=== PATIENT | male | born 1965 | race American Indian/Alaskan Native ===

== ENCOUNTER 2017-09-26 07:58 | Inpatient (IN) | payer BC ==
[2017-09-26 08:27] LABS: Basophils # (Auto) 0.1 K/mm3 (0.0-0.1); Basophils % (Auto) 0.6 % (0.0-1.8); Eosinophils # (Auto) 0.4 K/mm3 (0.0-0.4); Hematocrit 32.9 % (35.5-45.6); Hemoglobin 10.4 gm/dl (11.8-15.2); Lymphocytes # (Auto) 1.2 K/mm3 (1.2-5.4); Lymphocytes % (Auto) 9.1 % (13.4-35.0); Mean Corpuscular HGB Conc 32 % (32-34); Mean Corpuscular Hemoglobin 29 pg (28-32); Mean Corpuscular Volume 92 fl (84-94); Monocytes # (Auto) 0.8 K/mm3 (0.0-0.8); Monocytes % (Auto) 5.7 % (0.0-7.3); Platelet Count 276 K/mm3 (140-440); Red Blood Count 3.56 M/mm3 (3.65-5.03); Red Cell Distribution Width 14.9 % (13.2-15.2)
[2017-09-26 08:45] LABS: Calcium 8.4 mg/dL (8.4-10.2)
--- NOTE | 2017-09-26 09:06 | Emergency Department Report ---
HPI - General Chief Complaint: High BP Time Seen by Provider: 09/26/17 09:00 - HPI HPI: This is a 52 year-old male presents to the emergency department from his dialysis clinic with complaint of shortness of breath and needing dialysis. The patient missed his last 2 dialysis sessions and went to get dialysis today but was denied secondary to elevated blood pressure. His risk advisor is Dr. Escobar. He has a past medical history of asthma, GERD, hypertension and is end-stage renal disease on dialysis on Monday/Monday/ Monday. He last had dialysis last Monday. He denies any chest pain, fever, nausea or vomiting. He has not taken anything for her symptoms prior to presentation. ED Past Medical Hx - Past Medical History Previous Medical History?: Yes Hx Hypertension: Yes Hx GERD: Yes Hx Renal Disease: Yes (diaylsis m,w,f) Hx Arthritis: Yes (HANDS,KNEES) Hx Asthma: Yes (allergy related) - Surgical History Past Surgical History?: Yes Additional Surgical History: vas cath. diaylsis graft left left arm - Social History Smoking Status: Never Smoker Substance Use Type: Alcohol, Prescribed - Medications Home Medications: Home Medications Medication Instructions Recorded Confirmed Last Taken Type Furosemide [Lasix TAB] 80 mg PO BID 01/04/16 09/26/17 04/18/16 History Labetalol HCl 300 mg PO TID 01/04/16 09/26/17 04/19/16 07:30 History amLODIPine [Norvasc] 5 mg PO DAILY 01/04/16 09/26/17 04/18/16 History hydrALAZINE [Apresoline TAB] 100 mg PO TID 01/04/16 09/26/17 04/18/16 History Allopurinol [Zyloprim] 100 mg PO BID 01/12/16 09/26/17 04/18/16 History B Complex 11/Folic/C/Biot/Zinc 1 each PO QDAY 09/26/17 09/26/17 Unknown History [Dialyvite with Zinc Tablet] Ferric Citrate (Nf) [Auryxia (Nf)] 2 tab PO TID 09/26/17 09/26/17 Unknown History Sodium Bicarbonate 650 mg PO BIDWM 09/26/17 09/26/17 Unknown History cloNIDine [Catapres] 0.2 mg PO TID 09/26/17 09/26/17 Unknown History ED Review of Systems ROS: Stated complaint: HYPERTENSION Other details as noted in HPI Comment: All other systems reviewed and negative Constitutional: denies: chills, fever Eyes: denies: eye pain, eye discharge, vision change ENT: denies: ear pain, throat pain Respiratory: shortness of breath. denies: cough Cardiovascular: denies: chest pain, palpitations Gastrointestinal: denies: abdominal pain, nausea, diarrhea Genitourinary: denies: urgency, dysuria Musculoskeletal: denies: back pain, joint swelling, arthralgia Skin: denies: rash, lesions Neurological: denies: headache, weakness, paresthesias Physical Exam - Physical Exam Vital Signs: Vital Signs 09/26/17 08:06 Temperature 97.8 F Pulse Rate 79 Respiratory 16 Rate Blood Pressure 196/87 O2 Sat by Pulse 16 L Oximetry Physical Exam: GENERAL: The patient is well-developed well-nourished. HENT: Normocephalic. Atraumatic. Patient has moist mucous membranes. EYES: Extraocular motions are intact. Pupils equal reactive to light bilaterally. NECK: Supple. Trachea is midline. CHEST/LUNGS: Coarse breath sounds without chest. No tachypnea or accessory muscle use. There is no respiratory distress noted. HEART/CARDIOVASCULAR: Regular. There is no tachycardia. There is no murmur. ABDOMEN: Abdomen is soft, nontender. Patient has normal bowel sounds. Obese habitus. SKIN: Skin is warm and dry. Mild pitting swelling of the bilateral lower extremity is. NEURO: The patient is awake, alert, and oriented. The patient is cooperative. The patient has no focal neurologic deficits. The patient has normal speech. MUSCULOSKELETAL: There is no tenderness or deformity. There is no limitation range of motion. There is no evidence of acute injury. ED Course Vital Signs 09/26/17 08:06 Temperature 97.8 F Pulse Rate 79 Respiratory 16 Rate Blood Pressure 196/87 O2 Sat by Pulse 16 L Oximetry - Consultations Consultation #1: I spoke to the patient's risk advisor, Dr. Olson, who will arrange stat dialysis this morning. The patient will be admitted to the hospitalist service. Since the patient will get dialysis this morning, he did not require any of the hyperkalemia cocktail. 09/26/17 10:06 ED Medical Decision Making - Lab Data Result diagrams: 09/26/17 08:13 09/26/17 08:13 - Radiology Data Radiology results: image reviewed interpreted by me: Chest x-ray shows some mild cardiomegaly. There is pulmonary vascular congestion and some mild basilar effusions. - Medical Decision Making Patient presents with very elevated blood pressure and some shortness of breath after missing his last 2 dialysis sessions. He has a potassium of 6.6. His risk advisor has been counseled that and will arrange for stat dialysis. He did not want the hyperkalemia cocktail to be given on this patient. He was given something for his elevated blood pressure. Chest x-ray shows some volume overload. Patient does not appear in any respiratory distress. Accepted for admission by the hospitalist service. - Differential Diagnosis CHF, hypervolemia, hyperkalemia, pneumonia Critical Care Time: No Critical care attestation.: If time is entered above; I have spent that time in minutes in the direct care of this critically ill patient, excluding procedure time. ED Disposition Clinical Impression: ESRD (end stage renal disease), Hypertensive urgency, Hyperkalemia, SOB ( shortness of breath) Disposition: DC-09 OP ADMIT IP TO THIS HOSP Is pt being admited?: Yes Condition: Stable Time of Disposition: 09:52
--- NOTE | 2017-09-26 09:42 | XRay Report ---
PORTABLE CHEST INDICATION: Shortness of breath. COMPARISON: None similar. FINDINGS: Portable, frontal chest radiograph suggests slightly prominent bronchovascular markings centrally and minimal fluid or thickening along the right minor fissure. No significant pleural effusions. Normal cardiomediastinal silhouette. EKG leads. Intact bones. CONCLUSION: Subtle central pulmonary vascular congestion not excluded developing in an appropriate clinical setting, as described. Please correlate. Thank you for the opportunity to participate in this patient's care.
[2017-09-26] MEDS ORDERED: NACL 0.9% 100 ML IV PRN (09:45)
[2017-09-26] MEDS ORDERED: APRESOLINE ONE (10:01)
--- NOTE | 2017-09-26 11:06 | History and Physical Report ---
<ROSA SHEPPARD - Last Filed: 09/26/17 11:44> History of Present Illness Date of examination: 09/26/17 Date of admission: 09/26/17 09:52 Chief complaint: Shortness of breath History of present illness: Patient is a 52 years old male with past medical history of hypertension, Asthma, end stage renal disease MWF and medical non-compliance presented to ED for with the complaint of the need for dialysis and dyspnea on exertion.He has been end-stage renal disease on dialysis for the past few years. Patient states that unable to receive hemodialysis because he was out of tow. Patient followed by Dr. Olson. The patient was last dialyzed on 2016 and missed two cession of HD treatment so he presents to ER for hemodialysis treatment today. Patient also complains dyspnea on exertion. He denies fevers, chills, chest pain, nausea, vomiting, abdominal pain, orthopnea, PND or leg swelling. Past History Past Medical History: ESRD (MWF), hypertension Past Surgical History: Other ( diaylsis graft left left arm) Social history: denies: smoking, alcohol abuse Family history: hypertension Medications and Allergies Allergies Allergy/AdvReac Type Severity Reaction Status Date / Time lisinopril Allergy Intermediate Swelling Verified 01/12/16 07:41 OF THE MOUTH Home Medications Medication Instructions Recorded Confirmed Last Taken Type Furosemide [Lasix TAB] 80 mg PO BID 01/04/16 09/26/17 04/18/16 History Labetalol HCl 300 mg PO TID 01/04/16 09/26/17 04/19/16 07:30 History amLODIPine [Norvasc] 5 mg PO DAILY 01/04/16 09/26/17 04/18/16 History hydrALAZINE [Apresoline TAB] 100 mg PO TID 01/04/16 09/26/17 04/18/16 History Allopurinol [Zyloprim] 100 mg PO BID 01/12/16 09/26/17 04/18/16 History B Complex 11/Folic/C/Biot/Zinc 1 each PO QDAY 09/26/17 09/26/17 Unknown History [Dialyvite with Zinc Tablet] Ferric Citrate (Nf) [Auryxia (Nf)] 2 tab PO TID 09/26/17 09/26/17 Unknown History Sodium Bicarbonate 650 mg PO BIDWM 09/26/17 09/26/17 Unknown History cloNIDine [Catapres] 0.2 mg PO TID 09/26/17 09/26/17 Unknown History Active Meds: Active Medications Heparin Sodium (Porcine) (Heparin) 5,000 unit SUB-Q Q8HR [facility] Sodium Chloride (Nacl 0.9%) 100 mls @ 999 mls/hr IV AY[facility]NA PRN PRN Reason: Hypotension Review of Systems Constitutional: no weight loss, no weight gain, no fever, no chills Ears, nose, mouth and throat: no ear pain, no ear discharge Cardiovascular: shortness of breath, dyspnea on exertion, paroxysmal nocturnal dyspnea, no chest pain, no syncope, no lightheadedness Respiratory: cough, shortness of breath, dyspnea on exertion, no hemoptysis Gastrointestinal: no abdominal pain, no nausea, no vomiting, no diarrhea Rectal: no incontinence, no bleeding Musculoskeletal: no neck pain, no arm numbness/tingling, no low back pain Integumentary: no rash, no pruritis, no redness Neurological: no weakness, no numbness, no tingling Psychiatric: no memory loss, no change in sleep habits, no sleep disturbances, no insomnia Endocrine: no cold intolerance, no heat intolerance, no polyphagia, no excessive thirst Hematologic/Lymphatic: no easy bruising Allergic/Immunologic: no urticaria, no allergic rhinitis Exam - Constitutional Vitals: Temp Pulse Resp BP Pulse Ox 97.8 F 80 18 199/109 98 09/26/17 08:06 09/26/17 10:30 09/26/17 10:30 09/26/17 10:30 09/26/17 10:30 General appearance: Present: no acute distress - EENT Eyes: Present: PERRL ENT: hearing intact - Neck Neck: Present: supple, normal ROM - Respiratory Respiratory effort: normal Respiratory: bilateral: diminished - Cardiovascular Rhythm: regular Heart Sounds: Present: S1 & S2 - Abdominal General gastrointestinal: Present: soft, non-tender Male genitourinary: Present: deferred - Rectal Rectal Exam: deferred - Integumentary Integumentary: Present: clear, warm, dry - Musculoskeletal Musculoskeletal: strength equal bilaterally - Psychiatric Psychiatric: appropriate mood/affect - Neurologic Neurologic: CNII-XII intact - Allied Health Allied health notes reviewed: nursing Results - Labs CBC & Chem 7: 09/26/17 08:13 09/26/17 08:13 Labs: Laboratory Last Values WBC 13.3 K/mm3 (4.5-11.0) H 09/26/17 08:13 RBC 3.56 M/mm3 (3.65-5.03) L 09/26/17 08:13 Hgb 10.4 gm/dl (11.8-15.2) L 09/26/17 08:13 Hct 32.9 % (35.5-45.6) L 09/26/17 08:13 MCV 92 fl (84-94) 09/26/17 08:13 MCH 29 pg (28-32) 09/26/17 08:13 MCHC 32 % (32-34) 09/26/17 08:13 RDW 14.9 % (13.2-15.2) 09/26/17 08:13 Plt Count 276 K/mm3 (140-440) 09/26/17 08:13 Lymph % (Auto) 9.1 % (13.4-35.0) L 09/26/17 08:13 [place] % (Auto) 5.7 % (0.0-7.3) 09/26/17 08:13 Eos % (Auto) 3.0 % (0.0-4.3) 09/26/17 08:13 Baso % (Auto) 0.6 % (0.0-1.8) 09/26/17 08:13 Lymph # 1.2 K/mm3 (1.2-5.4) 09/26/17 08:13 [place] # 0.8 K/mm3 (0.0-0.8) 09/26/17 08:13 Eos # 0.4 K/mm3 (0.0-0.4) 09/26/17 08:13 Baso # 0.1 K/mm3 (0.0-0.1) 09/26/17 08:13 Seg Neutrophils % 81.6 % (40.0-70.0) H 09/26/17 08:13 Seg Neutrophils # 10.8 K/mm3 (1.8-7.7) H 09/26/17 08:13 Sodium 141 mmol/L (137-145) 09/26/17 08:13 Potassium 6.6 mmol/L (3.6-5.0) H* 09/26/17 08:13 Chloride 99.9 mmol/L (98-107) 09/26/17 08:13 Carbon Dioxide 18 mmol/L (22-30) L 09/26/17 08:13 Anion Gap 30 mmol/L 09/26/17 08:13 BUN 87 mg/dL (9-20) H 09/26/17 08:13 Creatinine 17.7 mg/dL (0.8-1.5) H 09/26/17 08:13 Estimated GFR 3 ml/min 09/26/17 08:13 BUN/Creatinine Ratio 5 % 09/26/17 08:13 Glucose 90 mg/dL (75-100) 09/26/17 08:13 Calcium 8.4 mg/dL (8.4-10.2) 09/26/17 08:13 Assessment and Plan Assessment and plan: Patient is a 52 years old male with past medical history of hypertension, Asthma, end stage renal disease MWF and medical non-compliance presented to ED for with the complaint of the need for dialysis and dyspnea on exertion.He has been end-stage renal disease on dialysis for the past few years. End Stage Renal Disease Nephrology following Volume Overload Patient will have emergent hemodialysis Hyperkalmia Patient will have emergent HD today that will correct it. Closely monitor electrolytes Hypertensive urgency Optimized home antihypertensive medications IV Hydralazine for SBP>160 Closely monitor blood pressure Chronic anemia H&H stable for patient at this point; no blood transfusions needed Closely monitor H&H Mild hyponatremia Most likely fluid dilution Closely monitor electrolytes Leukocytosis Reactive no source of infection Closely monitor CBC Noncompliance Patient noncompliance with dialysis. counseling done DVT prophylaxis Heparin Advance Directives: Yes VTE prophylaxis?: Chemical Contraindication Mechanical VTE Prophylaxis: Treatment Not Indicated Plan of care discussed with patient/family: Yes <NATASHA ANTONIO - Last Filed: 09/26/17 21:05> History of Present Illness Date of admission: 09/26/17 09:52 Medications and Allergies Active Meds: Active Medications Allopurinol (Zyloprim) 100 mg PO QDAY [facility] Amlodipine Besylate (Norvasc) 5 mg PO DAILY [facility] Clonidine HCl (Catapres) 0.2 mg PO TID [facility] Last Admin: 09/26/17 20:56 Dose: 0.2 mg Heparin Sodium (Porcine) (Heparin) 5,000 unit SUB-Q Q8HR [facility] Last Admin: 09/26/17 14:24 Dose: Not Given Hydralazine HCl (Apresoline) 10 mg IV Q4H PRN PRN Reason: Blood Pressure Hydralazine HCl (Apresoline) 100 mg PO TID [facility] Last Admin: 09/26/17 20:56 Dose: 100 mg Sodium Chloride (Nacl 0.9%) 100 mls @ 999 mls/hr IV AYANNA PRN PRN Reason: Hypotension Labetalol HCl (Normodyne) 300 mg PO TID [facility] Last Admin: 09/26/17 20:54 Dose: 300 mg Miscellaneous Medication (Ferric Citrate) 2 tab PO TID [facility] Multivit/Ca Carb/B Cmplx/FA/Prenat (Renal Caps) 1 cap PO QDAY [facility] Last Admin: 09/26/17 13:52 Dose: Not Given Sodium Bicarbonate (Sodium Bicarbonate) 650 mg PO BIDDIAB [facility] Last Admin: 09/26/17 18:23 Dose: 650 mg Exam - Constitutional Vitals: Temp Pulse Resp BP Pulse Ox 98.7 F 73 18 174/109 94 09/26/17 20:35 09/26/17 20:56 09/26/17 20:35 09/26/17 20:56 09/26/17 20:35 Results - Labs CBC & Chem 7: 09/26/17 08:13 09/26/17 08:13 Labs: Laboratory Last Values WBC 13.3 K/mm3 (4.5-11.0) H 09/26/17 08:13 RBC 3.56 M/mm3 (3.65-5.03) L 09/26/17 08:13 Hgb 10.4 gm/dl (11.8-15.2) L 09/26/17 08:13 Hct 32.9 % (35.5-45.6) L 09/26/17 08:13 MCV 92 fl (84-94) 09/26/17 08:13 MCH 29 pg (28-32) 09/26/17 08:13 MCHC 32 % (32-34) 09/26/17 08:13 RDW 14.9 % (13.2-15.2) 09/26/17 08:13 Plt Count 276 K/mm3 (140-440) 09/26/17 08:13 Lymph % (Auto) 9.1 % (13.4-35.0) L 09/26/17 08:13 [place] % (Auto) 5.7 % (0.0-7.3) 09/26/17 08:13 Eos % (Auto) 3.0 % (0.0-4.3) 09/26/17 08:13 Baso % (Auto) 0.6 % (0.0-1.8) 09/26/17 08:13 Lymph # 1.2 K/mm3 (1.2-5.4) 09/26/17 08:13 [place] # 0.8 K/mm3 (0.0-0.8) 09/26/17 08:13 Eos # 0.4 K/mm3 (0.0-0.4) 09/26/17 08:13 Baso # 0.1 K/mm3 (0.0-0.1) 09/26/17 08:13 Seg Neutrophils % 81.6 % (40.0-70.0) H 09/26/17 08:13 Seg Neutrophils # 10.8 K/mm3 (1.8-7.7) H 09/26/17 08:13 Sodium 141 mmol/L (137-145) 09/26/17 08:13 Potassium 6.6 mmol/L (3.6-5.0) H* 09/26/17 08:13 Chloride 99.9 mmol/L (98-107) 09/26/17 08:13 Carbon Dioxide 18 mmol/L (22-30) L 09/26/17 08:13 Anion Gap 30 mmol/L 09/26/17 08:13 BUN 87 mg/dL (9-20) H 09/26/17 08:13 Creatinine 17.7 mg/dL (0.8-1.5) H 09/26/17 08:13 Estimated GFR 3 ml/min 09/26/17 08:13 BUN/Creatinine Ratio 5 % 09/26/17 08:13 Glucose 90 mg/dL (75-100) 09/26/17 08:13 Calcium 8.4 mg/dL (8.4-10.2) 09/26/17 08:13 Assessment and Plan Assessment and plan: I saw and evaluated the patient. I agree with the findings and the plan of care as documented in the Nurse Practitioner's~note, with the following corrections and additions. ESRD with BUN of 87 and Creatinine of 17.7 due to missed dialysis from noncompliance. For hypokalemia, EKG done in ER. No arrhythmias identified.
[2017-09-26] MEDS ORDERED: APRESOLINE IV PRN (11:19)
--- NOTE | 2017-09-26 11:26 | Consultation ---
History of Present Illness - Reason for Consult Consult date: 09/26/17 end stage renal disease, hyperkalemia Requesting physician: CON LIMON - History of Present Illness Patient is a 52 years old male with past medical history of hypertension, Asthma, end stage renal disease MWF and medical non-compliance presented to ED for with the complaint of the need for dialysis and dyspnea on exertion.He has been end-stage renal disease on dialysis for the past few years. Patient states that unable to receive hemodialysis because he was out of town . The patient was last dialyzed on 09/20/2017 and missed two session of HD treatment so he presents to ER for hemodialysis treatment today. Patient also complains dyspnea on exertion. He denies fevers, chills, chest pain, nausea, vomiting, abdominal pain, orthopnea, PND or leg swelling. He undergoes hemodialysis at [facility] Mondays, Wednesdays and Fridays. He went to the dialysis clinic today, however his blood pressure was 240/140 and he was visibly dyspneic. He was therefore sent to the emergency room for evaluation Past History Past Medical History: ESRD (MWF), hypertension Past Surgical History: Other (history of creation of AV fistula) Social history: other (denies smoking or drinking) Family history: no significant family history (noncontributory for kidney disease) Medications and Allergies Allergies Allergy/AdvReac Type Severity Reaction Status Date / Time lisinopril Allergy Intermediate Swelling Verified 01/12/16 07:41 OF THE MOUTH Home Medications Medication Instructions Recorded Confirmed Last Taken Type Furosemide [Lasix TAB] 80 mg PO BID 01/04/16 09/26/17 04/18/16 History Labetalol HCl 300 mg PO TID 01/04/16 09/26/17 04/19/16 07:30 History amLODIPine [Norvasc] 5 mg PO DAILY 01/04/16 09/26/17 04/18/16 History hydrALAZINE [Apresoline TAB] 100 mg PO TID 01/04/16 09/26/17 04/18/16 History Allopurinol [Zyloprim] 100 mg PO BID 01/12/16 09/26/17 04/18/16 History B Complex 11/Folic/C/Biot/Zinc 1 each PO QDAY 09/26/17 09/26/17 Unknown History [Dialyvite with Zinc Tablet] Ferric Citrate (Nf) [Auryxia (Nf)] 2 tab PO TID 09/26/17 09/26/17 Unknown History Sodium Bicarbonate 650 mg PO BIDWM 09/26/17 09/26/17 Unknown History cloNIDine [Catapres] 0.2 mg PO TID 09/26/17 09/26/17 Unknown History Active Meds: Active Medications Allopurinol (Zyloprim) 100 mg PO BID [facility] Amlodipine Besylate (Norvasc) 5 mg PO DAILY [facility] Clonidine HCl (Catapres) 0.2 mg PO TID [facility] Heparin Sodium (Porcine) (Heparin) 5,000 unit SUB-Q Q8HR [facility] Hydralazine HCl (Apresoline) 10 mg IV Q4H PRN PRN Reason: Blood Pressure Hydralazine HCl (Apresoline) 100 mg PO TID [facility] Sodium Chloride (Nacl 0.9%) 100 mls @ 999 mls/hr IV AYANNA PRN PRN Reason: Hypotension Miscellaneous Medication (B Complex 11/Folic/C/Biot/Zinc [Dialyvite With Zinc Tablet]) 1 each PO QDAY [facility] Miscellaneous Medication (Ferric Citrate) 2 tab PO TID [facility] Miscellaneous Medication (Labetalol Hcl [Labetalol Hcl]) 300 mg PO TID [facility] Sodium Bicarbonate (Sodium Bicarbonate) 650 mg PO BIDWM [facility] Review of Systems All systems: negative (negative except as noted above) Exam - Vital Signs Vital signs: Vital Signs Temp Pulse Resp BP Pulse Ox 97.8 F 79 16 196/87 16 L 09/26/17 08:06 09/26/17 08:06 09/26/17 08:06 09/26/17 08:06 09/26/17 08:06 - General Appearance General appearance: well-developed, well-nourished, appears stated age EENT: PERRL, mucous membranes moist Neck: Present: neck supple, trachea midline. Absent: JVD/HJR, Masses Respiratory: Rales (at the bases) Heart: regular, normal heart rate, S1S2, no murmurs Gastrointestinal: Present: normal, normoactive bowel sounds Integumentary: no rash, other (AV fistula in his left upper arm. Good bruit and thrill.) Results - Lab Results 09/26/17 08:13 09/26/17 08:13 Most recent lab results Calcium 8.4 mg/dL (8.4-10.2) 09/26/17 08:13 Assessment and Plan Impression * End-stage renal disease on maintenance hemodialysis * Accelerated hypertension * Hyperkalemia * Congestive heart failure * Noncompliance * Anemia secondary to ESRD * Metabolic acidosis Recommendations * Shall arrange for hemodialysis as soon as possible * His hyperkalemia, metabolic acidosis as well as volume overload should improve with dialysis * He was more than 6 kg over his baseline weight. Suspect he will need additional dialysis treatment tomorrow * If his blood pressure remains elevated postdialysis, would need to adjust his antihypertensive meds * Procrit after better blood pressure control * Binders with diet * Adjust diet and meds per ESRD state * No IV, BPR venipuncture in his access arm * Thank you very much for the consultation. Shall follow along with you
[2017-09-26] MEDS: NORMODYNE PO SCH ×2 (13:51→20:54)
[2017-09-26] MEDS: CATAPRES PO SCH ×2 (13:51→20:56)
[2017-09-26] MEDS: APRESOLINE PO SCH ×2 (13:51→20:56)
[2017-09-26] MEDS: Renal Caps PO SCH (13:52)
[2017-09-26] MEDS ORDERED: FERRIC CITRATE PO SCH (14:00)
[2017-09-26] MEDS ORDERED: NON-FORMULARY (Labetalol Hcl [Labetalol Hcl] 300 MG) PO SCH (14:00)
[2017-09-26] MEDS: SODIUM BICARBONATE PO SCH ×2 (14:23→18:23)
[2017-09-26] MEDS: HEPARIN SUB-Q SCH ×2 (14:24→21:05)
[2017-09-26] MEDS ORDERED: ZYLOPRIM PO SCH (22:00)
[2017-09-27 06:20] LABS: Basophils # (Auto) 0.1 K/mm3 (0.0-0.1); Basophils % (Auto) 0.8 % (0.0-1.8); Eosinophils # (Auto) 0.3 K/mm3 (0.0-0.4); Eosinophils % (Auto) 3.1 % (0.0-4.3); Hematocrit 31.4 % (35.5-45.6); Hemoglobin 10.6 gm/dl (11.8-15.2); Lymphocytes # (Auto) 1.7 K/mm3 (1.2-5.4); Lymphocytes % (Auto) 16.7 % (13.4-35.0); Mean Corpuscular HGB Conc 34 % (32-34); Mean Corpuscular Hemoglobin 31 pg (28-32); Mean Corpuscular Volume 92 fl (84-94); Monocytes # (Auto) 0.7 K/mm3 (0.0-0.8); Monocytes % (Auto) 6.6 % (0.0-7.3); Platelet Count 280 K/mm3 (140-440)
[2017-09-27] MEDS: HEPARIN SUB-Q SCH ×3 (06:23→22:52)
[2017-09-27] MEDS: APRESOLINE PO SCH ×3 (08:05→22:52)
[2017-09-27] MEDS: ZYLOPRIM PO SCH (09:00)
[2017-09-27] MEDS: CATAPRES PO SCH ×3 (09:00→22:51)
[2017-09-27] MEDS: SODIUM BICARBONATE PO SCH ×2 (10:00→17:44)
[2017-09-27] MEDS ORDERED: NON-FORMULARY (B Complex 11/Folic/C/Biot/Zinc [Dialyvite With Zinc Tablet] 1 EACH) PO SCH (10:00)
--- NOTE | 2017-09-27 10:13 | Progress Note ---
Assessment and Plan Impression * End-stage renal disease on maintenance hemodialysis * Accelerated hypertension * Hyperkalemia * Congestive heart failure * Noncompliance * Anemia secondary to ESRD * Metabolic acidosis Recommendations * Hemodialysis today to resume MWF schedule * UF as tolerated - goal 3kg * Binders with diet * Adjust diet and meds per ESRD state * No IV, BPR venipuncture in his access arm Subjective Date of service: 09/27/17 Interval history: Patient reports that he is feeling better since dialysis yesterday. Seen on HD. Objective - Vital Signs Vital signs: Vital Signs - 12hr 09/26/17 09/27/17 09/27/17 23:57 03:20 05:08 Temperature 98.5 F 98.3 F Pulse Rate 76 80 76 Respiratory 18 18 Rate Blood Pressure 141/71 149/75 O2 Sat by Pulse 94 94 Oximetry - General Appearance General appearance: well-developed, well-nourished EENT: ATNC Respiratory: Present: Clear to Ascultation Cardiology: regular, S1S2 Gastrointestinal: normal, no tenderness, no distended, obese Integumentary: no rash, warm and dry Neurologic: alert and oriented x3 Musculoskeletal: other (no edema) Psychiatric: cooperative - Lab 09/27/17 06:00 09/27/17 06:00 Most recent lab results Calcium 8.0 mg/dL (8.4-10.2) L 09/27/17 06:00
[2017-09-27] MEDS ORDERED: NACL 0.9% 100 ML IV PRN (11:00)
[2017-09-27] MEDS: NORMODYNE PO SCH ×3 (14:05→22:52)
--- NOTE | 2017-09-27 16:29 | Progress Note ---
Assessment and Plan Patient is a 52 years old male with past medical history of hypertension, Asthma, end stage renal disease MWF and medical non-compliance presented to ED for with the complaint of the need for dialysis and dyspnea on exertion.He has been end-stage renal disease on dialysis for the past few years. ESRD on hemodialysis. BUN of 41 and Creatinine of 10.5 due to missed dialysis from noncompliance. Volume Overload From missed hemodialysis Patient will have emergent hemodialysis Hyperkalmia Patient will have emergent HD admission Hyperkalemia improved. Closely monitor electrolytes Hypertensive urgency Optimized home antihypertensive medications IV Hydralazine for SBP>160 Closely monitor blood pressure Chronic anemia H&H stable for patient at this point; no blood transfusions needed Closely monitor H&H Mild hyponatremia Most likely fluid dilution Closely monitor electrolytes Leukocytosis Reactive no source of infection Closely monitor CBC Noncompliance Patient noncompliance with dialysis. counseling done DVT prophylaxis Heparin Advance Directives: Yes VTE prophylaxis?: Chemical Plan of care discussed with patient: Yes Subjective Date of service: 09/27/17 Principal diagnosis: end-stage renal disease on hemodialysis, hyperkalemia Interval history: Patient seen and examined. Reviewed laboratory data. Discussed with patient nurse. No overnight event reported. Denies any chest pain or shortness of breath. No palpitations. Had hemodialysis yesterday Objective - Constitutional Vitals: Vital Signs - 12hr 09/27/17 09/27/17 09/27/17 05:08 11:05 11:15 Temperature 98.3 F Pulse Rate 76 69 68 Respiratory 18 Rate Blood Pressure 149/75 172/99 169/102 O2 Sat by Pulse 94 Oximetry 09/27/17 09/27/17 09/27/17 11:30 11:45 12:00 Temperature Pulse Rate 66 66 69 Respiratory Rate Blood Pressure 158/94 153/101 148/100 O2 Sat by Pulse Oximetry 09/27/17 09/27/17 09/27/17 12:15 12:30 12:45 Temperature Pulse Rate 69 71 66 Respiratory Rate Blood Pressure 159/97 139/92 130/104 O2 Sat by Pulse Oximetry 09/27/17 09/27/17 13:00 13:15 Temperature Pulse Rate 72 72 Respiratory Rate Blood Pressure 120/96 151/101 O2 Sat by Pulse Oximetry General appearance: Present: no acute distress, well-nourished - EENT Eyes: PERRL, EOM intact - Neck Neck: supple, normal ROM - Respiratory Respiratory effort: normal Respiratory: bilateral: CTA - Breasts Breasts: normal - Cardiovascular Rhythm: regular Heart Sounds: Present: S1 & S2. Absent: gallop, rub Extremities: pulses intact, No edema, normal color, Full ROM - Gastrointestinal General gastrointestinal: Present: soft, non-tender, non-distended, normal bowel sounds - Genitourinary Male genitourinary: normal - Integumentary Integumentary: clear, warm, dry - Musculoskeletal Musculoskeletal: 1, strength equal bilaterally - Neurologic Neurologic: moves all extremities - Psychiatric Psychiatric: memory intact, appropriate mood/affect, intact judgment & insight - Labs CBC & Chem 7: 09/27/17 06:00 09/27/17 06:00 Labs: Abnormal lab results 09/27/17 09/27/17 Range/Units 06:00 06:00 RBC 3.40 L (3.65-5.03) M/mm3 Hgb 10.6 L (11.8-15.2) gm/dl Hct 31.4 L (35.5-45.6) % Seg Neutrophils % 72.8 H (40.0-70.0) % Potassium 6.3 H* (3.6-5.0) mmol/L Chloride 92.8 L (98-107) mmol/L BUN 41 H (9-20) mg/dL Creatinine 10.5 H (0.8-1.5) mg/dL Glucose 102 H (75-100) mg/dL Calcium 8.0 L (8.4-10.2) mg/dL
[2017-09-27] MEDS: NORVASC PO SCH (17:15)
[2017-09-27] MEDS: Renal Caps PO SCH (17:15)
[2017-09-27] MEDS ORDERED: NACL 0.9 (PRIMING MACHINE ONLY DIALYSIS) MC ONE (17:55)
[2017-09-28] MEDS: HEPARIN SUB-Q SCH (06:25)
[2017-09-28 08:54] VITALS: BP 172/90
--- NOTE | 2017-09-28 09:06 | Progress Note ---
Assessment and Plan Impression * End-stage renal disease on maintenance hemodialysis * Accelerated hypertension * Hyperkalemia -resolved * Congestive heart failure * Noncompliance * Anemia secondary to ESRD * Metabolic acidosis Recommendations * Continue MWF schedule * UF as tolerated * Binders with diet * Adjust diet and meds per ESRD state * No IV, BPR venipuncture in his access arm Subjective Date of service: 09/28/17 Principal diagnosis: end-stage renal disease on hemodialysis, hyperkalemia Objective - Vital Signs Vital signs: Vital Signs - 12hr 09/27/17 09/27/17 09/27/17 21:33 22:00 22:51 Temperature Pulse Rate 77 Respiratory 18 Rate Respiratory 18 Rate [Bilateral Ankle] Blood Pressure 167/87 O2 Sat by Pulse Oximetry 09/27/17 09/27/17 09/28/17 22:52 23:44 03:49 Temperature 98.5 F 98.2 F Pulse Rate 77 78 71 Respiratory 18 18 Rate Respiratory Rate [Bilateral Ankle] Blood Pressure 167/87 144/81 147/68 O2 Sat by Pulse 95 97 Oximetry 09/28/17 08:23 Temperature 98.7 F Pulse Rate 76 Respiratory 16 Rate Respiratory Rate [Bilateral Ankle] Blood Pressure 172/90 O2 Sat by Pulse 97 Oximetry - Lab 09/27/17 06:00 09/27/17 06:00 Most recent lab results Calcium 8.0 mg/dL (8.4-10.2) L 09/27/17 06:00
[2017-09-28] MEDS: Renal Caps PO SCH (10:00)
[2017-09-28] MEDS: SODIUM BICARBONATE PO SCH (10:00)
[2017-09-28] MEDS: APRESOLINE PO SCH (10:00)
[2017-09-28] MEDS: CATAPRES PO SCH (10:01)
[2017-09-28] MEDS: NORVASC PO SCH (10:01)
[2017-09-28] MEDS: ZYLOPRIM PO SCH (10:01)
[2017-09-28] MEDS: NORMODYNE PO SCH (10:02)
--- NOTE | 2017-09-28 10:21 | Discharge Summary ---
Providers - Providers Date of Admission: 09/26/17 09:52 Attending physician: MEGHAN LOPEZ MD 09/26/17 09:53 Consult to Physician [CONS] Routine Consulting Provider: NICOLE OLSON Reason For Exam: dialysis, hyperkalemia Place consult to:: Dr Olson Notified:: y Was contact made?: Yes If yes, spoke with:: Dr Olson Primary care physician: CLOVIS ALMAZAN Hospitalization Condition: Stable Hospital course: Patient is a 52 years old male with past medical history of hypertension, Asthma, end stage renal disease MWF and medical non-compliance presented to ED for with the complaint of the need for dialysis and dyspnea on exertion. He was diagnosed with fluid overload and hyperkalemia. He underwent dialysis after which his condition corrected. He also had hypertensive urgency 40s medications optimized. His blood counts were stable during hospital stay, he was educated about increased compliance Discharge diagnoses ESRD on hemodialysis. Hyperkalmia Hypertensive urgency Chronic anemia Mild hyponatremia Noncompliance Disposition: DC-01 TO HOME OR SELFCARE Time spent for discharge: 33 minutes Core Measure Documentation - Palliative Care Palliative Care/ Comfort Measures: Not Applicable - Core Measures Any of the following diagnoses?: none Exam - Constitutional Vitals: Temp Pulse Resp BP Pulse Ox 98.7 F 76 16 172/90 97 09/28/17 08:23 09/28/17 08:23 09/28/17 08:23 09/28/17 08:23 09/28/17 08:23 General appearance: Present: no acute distress, well-nourished - EENT Eyes: Present: PERRL ENT: hearing intact, clear oral mucosa - Neck Neck: Present: supple, normal ROM - Respiratory Respiratory effort: normal Respiratory: bilateral: CTA - Cardiovascular Heart Sounds: Present: S1 & S2. Absent: rub, click - Extremities Extremities: pulses symmetrical, No edema Peripheral Pulses: within normal limits - Abdominal General gastrointestinal: Present: soft, non-tender, non-distended, normal bowel sounds Male genitourinary: Present: normal - Integumentary Integumentary: Present: clear, warm, dry - Musculoskeletal Musculoskeletal: gait normal, strength equal bilaterally - Psychiatric Psychiatric: appropriate mood/affect, intact judgment & insight - Neurologic Neurologic: CNII-XII intact, moves all extremities Plan Follow up with: PRIMARY CARE, [Referring] - 3-5 Days Prescriptions: Allopurinol [Zyloprim] 100 mg PO BID #60 tablet amLODIPine [Norvasc] 10 mg PO DAILY #30 tab B Complex 11/Folic/C/Biot/Zinc [Dialyvite with Zinc Tablet] 1 each PO QDAY #30 tablet cloNIDine [Catapres] 0.2 mg PO TID #90 tablet Ferric Citrate (Nf) [Auryxia (Nf)] 2 tab PO TID #90 tablet hydrALAZINE [Apresoline TAB] 100 mg PO TID #90 tab Labetalol HCl 300 mg PO TID #90 tablet Sodium Bicarbonate 650 mg PO BIDWM #60 tablet
== END 2017-09-28 12:09 | disposition home or self-care (01) | DRG 291 ==
LOC: ED 07:58 → 4A 09:52
PROVIDERS: ADMIT Family Medicine; ATTEND Internal Medicine
PROC: 5A1D70Z Performance of Urinary Filtration, Intermittent, Less than 6 Hours Per Day (ICD-10-PCS; principal; 2017-09-26)
PROC: 5A1D70Z Performance of Urinary Filtration, Intermittent, Less than 6 Hours Per Day (ICD-10-PCS; 2017-09-27)
DX: I13.2 Hypertensive heart and chronic kidney disease with heart failure and with stage 5 chronic kidney disease, or end stage renal disease (principal); N18.6 End stage renal disease; E87.1 Hypo-osmolality and hyponatremia; E87.2 Acidosis; E87.5 Hyperkalemia; I16.0 Hypertensive urgency; D53.9 Nutritional anemia, unspecified; D72.829 Elevated white blood cell count, unspecified; K21.9 Gastro-esophageal reflux disease without esophagitis; M19.90 Unspecified osteoarthritis, unspecified site; I50.9 Heart failure, unspecified; D63.1 Anemia in chronic kidney disease; Z91.14 Patient's other noncompliance with medication regimen; Z82.49 Family history of ischemic heart disease and other diseases of the circulatory system; Z91.15 Patient's noncompliance with renal dialysis
CPT/HCPCS: 36415; 71010; 80048; 85025; 93005; 93010; 99285; J0360; J1644; J7030